=== PATIENT | female | born 1970 | race Caucasian/White ===

== ENCOUNTER 2017-05-22 13:57 | Outpatient (CLI) | payer BC ==
--- NOTE | 2017-05-22 15:23 | XRAY Report ---
TWO-VIEW CHEST: 05/22/2017 CLINICAL INDICATION: Productive cough, difficulty breathing. FINDINGS: Frontal and lateral views of the chest demonstrate a normal cardiac silhouette. The lungs are clear. No effusion or pneumothorax is present. IMPRESSION: NORMAL CHEST. JOB #: [id number] EXT JOB #:[id number]
== END 2017-05-22 13:58 | disposition home or self-care (01) ==
LOC: DI 13:57
PROVIDERS: ATTEND Naturopath
DX: R05 Cough (principal)
CPT/HCPCS: 71020

== ENCOUNTER 2017-11-22 17:08 | Outpatient (CLI) | payer OTHER ==
--- NOTE | 2017-11-26 11:58 | Ultrasound Report ---
ANKLE BRACHIAL INDICES: 11/22/2017 CLINICAL INDICATION: Raynaud syndrome. TECHNIQUE: Real-time sonographic vascular imaging was performed by the hydraulic press servicer through the extremities utilizing both color-flow and Doppler flow analysis. Multiple technical sales representatives static images were saved for review. RIGHT SIDE SITE [employer]IN[employer] SURGEON 32 biphasic -- PER -- -- -- DPA 25 biphasic -- LEFT SIDE SITE [employer] SURGEON 31 biphasic -- PER -- -- -- DPA 20 biphasic -- ABIGRAPH SYSTOLIC PRESSURES RIGHT LEFT BRACHIAL ARTERY 129/92 144/78 POSTERIOR TIBIAL ARTERY 160/117 139/118 ANTERIOR TIBIAL ARTERY -- -- PERONEAL ARTERY -- -- ANKLE/ARM INDEX 1.11 0.97 FINDINGS: The ABIs are normal, with the right measuring 1.11, on the left measuring 0.97. IMPRESSION: NORMAL ABIs. TD: 11/23/2017 09:04 MTDD
== END 2017-11-22 17:09 | disposition home or self-care (01) ==
LOC: DI 17:08
PROVIDERS: ATTEND Physician Assistant Medical
DX: I73.00 Raynaud's syndrome without gangrene (principal)
CPT/HCPCS: 93922

== ENCOUNTER 2019-01-29 08:00 | Outpatient (CLI) | payer BC, OTHER ==
[2019-01-29 12:32] LABS: BASOPHILS # (AUTO) 0.1 10^3/uL (0.0-0.1); BASOPHILS % (AUTO) 1.1 %; EOSINOPHILS # (AUTO) 0.3 10^3/uL (0.0-0.7); EOSINOPHILS % (AUTO) 5.2 %; HGB - HEMOGLOBIN 14.7 g/dL (12.0-16.0); LYMPHOCYTES # (AUTO) 1.3 10^3/uL (1.5-3.5); LYMPHOCYTES % (AUTO) 21.8 %; MEAN CORPUSCULAR HEMOGLOBIN 30.2 pg (27.0-31.0); MEAN CORPUSCULAR HGB CONC 33.9 g/dL (32.0-36.0); MEAN CORPUSCULAR VOLUME 89.1 fL (81.0-99.0); MEAN PLATELET VOLUME 12.2 fL (7.9-10.8); MONOCYTES # (AUTO) 0.6 10^3/uL (0.0-1.0); MONOCYTES % (AUTO) 10.5 %; NEUTROPHILS # (AUTO) 3.7 10^3/uL (1.5-6.6); NEUTROPHILS % (AUTO) 60.9 %; PLT - PLATELET COUNT 214 10^3/uL (130-450); RED BLOOD COUNT 4.87 10^6/uL (4.20-5.40); RED CELL DISTRIBUTION WIDTH 12.8 % (12.0-15.0); WHITE BLOOD COUNT 6.1 x10^3/uL (4.8-10.8)
[2019-01-29 13:29] LABS: ALBUMIN/GLOBULIN RATIO 1.5 (1.0-2.2); ALKALINE PHOSPHATASE 34 IU/L (42-121); ALT ALANINE AMINOTRANSFERASE 11 IU/L (10-60); AST ASPARTATE AMINOTRANSFERASE 14 IU/L (10-42); BILIRUBIN,TOTAL 1.4 mg/dL (0.2-1.0); BUN - BLOOD UREA NITROGEN 13 mg/dL (6-20); CALCIUM 9.2 mg/dL (8.5-10.3); CARBON DIOXIDE - CO2 22 mmol/L (21-32); CHLORIDE 113 mmol/L (101-111); CHOL/HDL RATIO 2.4 (<4.4); CHOLESTEROL 154 mg/dL; CREATININE 0.6 mg/dL (0.4-1.0); GFR - MDRD 107 (>89); GLUCOSE 96 mg/dL (70-100); HDL CHOLESTEROL 63 mg/dL; LDL CHOLESTEROL,CALCULATED 79 mg/dL; LDL/HDL RATIO 1.3 (<4.4); SODIUM 142 mmol/L (135-145); TOTAL PROTEIN 6.6 g/dL (6.7-8.2); VLDL CHOLESTEROL 12 mg/dL
== END 2019-01-29 23:59 | disposition home or self-care (01) ==
LOC: LAB.WCP 08:00
PROVIDERS: ATTEND Physician Assistant Medical
DX: J45.909 Unspecified asthma, uncomplicated (principal); G35 Multiple sclerosis; E80.6 Other disorders of bilirubin metabolism
CPT/HCPCS: 36415; 80053; 80061; 83721; 84443; 85025

== ENCOUNTER 2019-02-22 11:13 | Outpatient (CLI) | payer BC | END 2019-02-22 11:14 | disposition short-term general hospital (02) | LOC: EMS 11:13 | PROVIDERS: ATTEND Surgery | DX: R61 Generalized hyperhidrosis (principal); R06.02 Shortness of breath; R25.1 Tremor, unspecified | CPT/HCPCS: A0425; A0427 ==

== ENCOUNTER 2019-04-28 20:27 | Outpatient (CLI) | payer OTHER | END 2019-04-28 20:28 | disposition critical access hospital (66) | LOC: EMS 20:27 | PROVIDERS: ATTEND Surgery | DX: R06.4 Hyperventilation (principal); R25.2 Cramp and spasm ==

== ENCOUNTER 2019-04-28 20:44 | Observation (INO) | payer OTHER ==
[2019-04-28] MEDS ORDERED: LORazepam 2 MG/ML VIAL IVP STA ×3 (20:53→22:56)
--- NOTE | 2019-04-28 20:58 | ED Physician Documentation ---
History of Present Illness - Stated complaint Stated Complaint: MS - Chief complaint Chief Complaint: Neuro - History obtained from History obtained from: Patient, Family, EMS - History of Present Illness Timing: How many hours ago (1) Pain level max: 0 Pain level now: 0 - Additonal information Additional information: History is given via EMS. Apparently this started approximately 1 hour prior to arrival. Has a history of panic attacks. Family states that this is similar to her prior panic attacks. She also has MS. She did not take her Ativan today. Nothing makes it better or worse. She does not use oxygen at home. No changes in her medications. She is not , breast-feeding or trying to become . Review of Systems Unable to obtain: Other (unable to speak) PD PAST MEDICAL HISTORY - Past Medical History Past Medical History: Yes Neuro: Multiple sclerosis Psych: Anxiety - Present Medications Home Medications: Ambulatory Orders Medication Instructions Recorded Confirmed Albuterol Sulfate [Proair 1 puffs INH PRN PRN 04/28/19 04/28/19 Respiclick] - Allergies Allergies/Adverse Reactions: Allergies Allergy/AdvReac Type Severity Reaction Status Date / Time No Known Drug Allergies Allergy Verified 04/28/19 20:59 - Living Situation Living Situation: reports: With family Living Arrangement: reports: At home - Family History Family history: reports: Non contributory PD ED PE NORMAL - Vitals Vital signs reviewed: Yes - General General: Other (alert, tachypneic, carpal pedal spasms) - HEENT HEENT: Atraumatic, PERRL, EOMI, Moist mucous membranes - Neck Neck: Supple, no meningeal sign, No bony TTP - Cardiac Cardiac: RRR - Respiratory Respiratory: Clear bilaterally, Other (tachypneic) - Abdomen Abdomen: Soft, Non tender, Non distended - Derm Derm: Other (moist, cool) - Extremities Extremities: No edema - Neuro Neuro: Other (alert) Results - Vitals Vitals: Vital Signs - 24 hr 04/28/19 04/28/19 04/28/19 20:47 21:00 22:12 Temperature 36.2 C L Heart Rate 103 H 100 107 H Respiratory 34 H 28 H 13 Rate Blood Pressure 135/100 H 144/117 H O2 Saturation 100 99 100 04/28/19 04/28/19 04/29/19 23:29 23:45 01:00 Temperature 36.4 C L Heart Rate 98 93 Respiratory 15 22 Rate Blood Pressure 136/113 H O2 Saturation 99 96 04/29/19 03:00 Temperature Heart Rate 89 Respiratory 18 Rate Blood Pressure O2 Saturation 99 Oxygen O2 Source Room air - Labs Labs: Laboratory Tests 04/28/19 04/28/19 04/28/19 20:25 20:25 20:55 WBC 19.5 H RBC 5.32 Hgb 15.8 Hct 47.1 H MCV 88.5 MCH 29.7 MCHC 33.5 RDW 12.7 Plt Count 279 MPV 11.5 H Neut # (Auto) 13.7 H Lymph # (Auto) 3.7 H [place] # (Auto) 1.3 H Eos # (Auto) 0.6 Baso # (Auto) 0.2 H Absolute Nucleated RBC 0.00 Nucleated RBC % 0.0 Sodium Potassium Chloride Carbon Dioxide Anion Gap BUN Creatinine Estimated GFR (MDRD) Glucose Lactic Acid Calcium Total Bilirubin AST ALT Alkaline Phosphatase Total Protein Albumin Globulin Albumin/Globulin Ratio Lipase TSH 4.77 Urine Color Urine Clarity Urine pH Ur Specific [place] Urine Protein Urine Glucose (UA) Urine Ketones Urine Occult Blood Urine Nitrite Urine Bilirubin Urine Urobilinogen Ur Leukocyte Esterase Ur Microscopic Review Urine Culture Comments Urine HCG, Qual CSF Color CSF Clarity Xanthrochromic CSF WBC CSF RBC CSF Cell Count Tube # CSF Neutrophils CSF Lymphocytes CSF Monocytes CSF Glucose CSF Total Protein Salicylates < 6.0 Urine Opiates Screen Ur Oxycodone Screen Urine Methadone Screen Ur Propoxyphene Screen Acetaminophen < 10 L Ur Barbiturates Screen Ur Tricyclics Screen Ur Phencyclidine Scrn Ur Amphetamine Screen U Methamphetamines Scrn U Benzodiazepines Scrn Urine Cocaine Screen U Cannabinoids Screen Ethyl Alcohol < 5.0 04/28/19 04/28/19 04/28/19 20:55 21:55 22:00 WBC RBC Hgb Hct MCV MCH MCHC RDW Plt Count MPV Neut # (Auto) Lymph # (Auto) [place] # (Auto) Eos # (Auto) Baso # (Auto) Absolute Nucleated RBC Nucleated RBC % Sodium 143 Potassium 3.8 Chloride 103 Carbon Dioxide 19 L Anion Gap 21.0 H BUN 14 Creatinine 0.8 Estimated GFR (MDRD) 77 L Glucose 147 H Lactic Acid 8.1 H* Calcium 10.0 Total Bilirubin 1.3 H AST 19 ALT 15 Alkaline Phosphatase 49 Total Protein 8.2 Albumin 5.1 Globulin 3.1 Albumin/Globulin Ratio 1.6 Lipase 43 TSH Urine Color LT. YELLOW Urine Clarity CLEAR Urine pH 5.5 Ur Specific [place] >=1.030 H Urine Protein NEGATIVE Urine Glucose (UA) NEGATIVE Urine Ketones 15 H Urine Occult Blood NEGATIVE Urine Nitrite NEGATIVE Urine Bilirubin NEGATIVE Urine Urobilinogen 0.2 (NORMAL) Ur Leukocyte Esterase NEGATIVE Ur Microscopic Review NOT INDICATED Urine Culture Comments NOT INDICATED Urine HCG, Qual NEGATIVE CSF Color CSF Clarity Xanthrochromic CSF WBC CSF RBC CSF Cell Count Tube # CSF Neutrophils CSF Lymphocytes CSF Monocytes CSF Glucose CSF Total Protein Salicylates Urine Opiates Screen NEGATIVE Ur Oxycodone Screen NEGATIVE Urine Methadone Screen NEGATIVE Ur Propoxyphene Screen NEGATIVE Acetaminophen Ur Barbiturates Screen NEGATIVE Ur Tricyclics Screen NEGATIVE Ur Phencyclidine Scrn NEGATIVE Ur Amphetamine Screen NEGATIVE U Methamphetamines Scrn NEGATIVE U Benzodiazepines Scrn POSITIVE H Urine Cocaine Screen NEGATIVE U Cannabinoids Screen POSITIVE H Ethyl Alcohol 04/29/19 01:30 WBC RBC Hgb Hct MCV MCH MCHC RDW Plt Count MPV Neut # (Auto) Lymph # (Auto) [place] # (Auto) Eos # (Auto) Baso # (Auto) Absolute Nucleated RBC Nucleated RBC % Sodium Potassium Chloride Carbon Dioxide Anion Gap BUN Creatinine Estimated GFR (MDRD) Glucose Lactic Acid Calcium Total Bilirubin AST ALT Alkaline Phosphatase Total Protein Albumin Globulin Albumin/Globulin Ratio Lipase TSH Urine Color Urine Clarity Urine pH Ur Specific [place] Urine Protein Urine Glucose (UA) Urine Ketones Urine Occult Blood Urine Nitrite Urine Bilirubin Urine Urobilinogen Ur Leukocyte Esterase Ur Microscopic Review Urine Culture Comments Urine HCG, Qual CSF Color PINK CSF Clarity CLOUDY Xanthrochromic ABSENT CSF WBC 16 H CSF RBC 5250 H CSF Cell Count Tube # CSF TUBE# 3 CSF Neutrophils 90 H CSF Lymphocytes 7 L CSF Monocytes 3 L CSF Glucose 65 CSF Total Protein 34 Salicylates Urine Opiates Screen Ur Oxycodone Screen Urine Methadone Screen Ur Propoxyphene Screen Acetaminophen Ur Barbiturates Screen Ur Tricyclics Screen Ur Phencyclidine Scrn Ur Amphetamine Screen U Methamphetamines Scrn U Benzodiazepines Scrn Urine Cocaine Screen U Cannabinoids Screen Ethyl Alcohol - Rads (name of study) Head CT Radiology: Prelim report reviewed, EMP read contemporaneously, See rad report (No CT evidence of an acute intracranial abnormality. If there is clinical suspicion of an acute infarct, consider MRI since it is more sensitive than CT. 2. Moderate patchy white matter low density within the periventricular white matter, nonspecific and could be secondary to history of multiple sclerosis and/or chronic microvascular ischemic change. ) Chest x-ray Radiology: Prelim report reviewed, EMP read contemporaneously, See rad report ( No acute cardiopulmonary disease seen. ) Procedures - Lumbar Puncture Position: Laying left side Location: L3-L4, L4-L5, Midline approach Anesthesia: Local lidocaine, Conscious sedation (versed 2mg) CSF: Bloody but clearing Other: Sterile prep and drape, Patient tolerated well, No complications PD MEDICAL DECISION MAKING - ED course Complexity details: reviewed results, re-evaluated patient, considered differential, d/w patient, d/w family, d/w environmental consultant ED course: 49-year-old female initially presented to the emergency department what appeared to be a panic attack. She is well-appearing, nontoxic. Afebrile. She improved with Ativan. However she then had a tonic-clonic seizure, lasting for approximately 2 to 3 minutes. She remained altered after this. She was given 1 g of Keppra IV. I contacted neurology, Dr. Ferraro at [facility] who recommends another gram of Keppra IV for a total of 2 g. Recommends performing a LP as well. Patient was difficult to perform the initial LP because she awoke part way through and became quite erratic on the table. Therefore 2 mg of Versed were pushed and it was attempted again. This time the initial tube was bloody, but the blood was clearing as the other tubes were collected. Neurology recommend a brain MRI with and without contrast in the morning. They do not feel that she needs to be transferred for this. Patient is continued to be altered in the emergency department, Though this is likely related to medications. Neurology also recommends starting Keppra 750 mg p.o. twice daily at home. Discussed with hospitalist, Dr. Sullivan who states he is not comfortable with the patient in this hospital. I recontacted Dr. Ferraro and she does not see a reason for transfer. I then recontacted Dr. Sullivan so that he and Dr. Ferraro can discuss this directly. After further discussion, we will keep the patient at [facility] and obtain an MRI in the morning. We will also observe to ensure that her mental status clears as expected after the Ativan and Versed wear off. Dr. Nchotu accepts Of note the lactic acid was drawn immediately following the seizure. Therefore the lactate measurement is likely not very accurate. The CSF is not consistent with meningitis. Departure - Departure Disposition: ED Place in Observation Clinical Impression: Seizure Altered mental status Qualifiers: Altered mental status type: unspecified Qualified Code(s): R41.82 - Altered mental status, unspecified Condition: Stable
[2019-04-28 21:03] LABS: BASOPHILS # (AUTO) 0.2 10^3/uL (0.0-0.1); BASOPHILS % (AUTO) 0.9 %; EOSINOPHILS # (AUTO) 0.6 10^3/uL (0.0-0.7); EOSINOPHILS % (AUTO) 2.8 %; HGB - HEMOGLOBIN 15.8 g/dL (12.0-16.0); LYMPHOCYTES # (AUTO) 3.7 10^3/uL (1.5-3.5); LYMPHOCYTES % (AUTO) 18.9 %; MEAN CORPUSCULAR HEMOGLOBIN 29.7 pg (27.0-31.0); MEAN CORPUSCULAR HGB CONC 33.5 g/dL (32.0-36.0); MEAN CORPUSCULAR VOLUME 88.5 fL (81.0-99.0); MEAN PLATELET VOLUME 11.5 fL (7.9-10.8); MONOCYTES # (AUTO) 1.3 10^3/uL (0.0-1.0); MONOCYTES % (AUTO) 6.4 %; NEUTROPHILS # (AUTO) 13.7 10^3/uL (1.5-6.6); NEUTROPHILS % (AUTO) 70.2 %; PLT - PLATELET COUNT 279 10^3/uL (130-450); RED BLOOD COUNT 5.32 10^6/uL (4.20-5.40); RED CELL DISTRIBUTION WIDTH 12.7 % (12.0-15.0); WHITE BLOOD COUNT 19.5 x10^3/uL (4.8-10.8)
[2019-04-28] MEDS ORDERED: SODIUM CHLORIDE 0.9% 1,000 ML IV ONE ×4 (21:11→21:51)
[2019-04-28 21:15] LABS: ALBUMIN 5.1 g/dL (3.2-5.5); ALBUMIN/GLOBULIN RATIO 1.6 (1.0-2.2); BILIRUBIN,TOTAL 1.3 mg/dL (0.2-1.0); CREATININE 0.8 mg/dL (0.4-1.0); TOTAL PROTEIN 8.2 g/dL (6.7-8.2)
[2019-04-28 21:32] LABS: ACETAMINOPHEN < 10 ug/mL (10-30); SALICYLATE < 6.0 mg/dL
[2019-04-28] MEDS ORDERED: levETIRAcetam INJ 1,000 MG in SODIUM CHLORIDE 0.9% 100ML 100 ML IV STA (21:49)
[2019-04-28] MEDS ORDERED: VANCOMYCIN INJ 1 GM in SODIUM CHLORIDE 0.9% 500 ML IV STA (21:50)
[2019-04-28] MEDS ORDERED: PIPERACILLIN/TAZOBACTAM 4.5 GM in SODIUM CHLORIDE 0.9% MINIBAG 100 ML IV STA (21:50)
--- NOTE | 2019-04-28 21:57 | XRAY Report ---
Reason: dyspnea Procedure Date: 04/28/2019 Accession Number: [id number] / [id number] Procedure: XR - Chest 1 View X-Ray CPT Code: 64049 Final Report FULL RESULT: EXAM: CHEST RADIOGRAPHY EXAM DATE: 04/28/2019 09:42 PM. CLINICAL HISTORY: Dyspnea. COMPARISON: CHEST 2 VIEW PA/LAT 05/22/2017 2:04 PM. TECHNIQUE: 1 view. FINDINGS: Lungs/Pleura: No focal opacities evident. No pleural effusion. No pneumothorax. Mediastinum: Within exam limitations, the cardiomediastinal contour is normal. IMPRESSION: No acute cardiopulmonary disease seen. RADIA
[2019-04-28 22:10] LABS: MUDS CUTOFF CONCENTRATIONS CUTOFF CONC BELOW:
[2019-04-28 22:12] LABS: BILIRUBIN,URINE NEGATIVE (NEGATIVE); GLUCOSE, URINE (UA) NEGATIVE (NEGATIVE); KETONES,URINE (UA) 15 mg/dL (NEGATIVE); LEUKOCYTE ESTERASE, URINE NEGATIVE (NEGATIVE); NITRITE,URINE NEGATIVE (NEGATIVE); OCCULT BLOOD,URINE NEGATIVE (NEGATIVE); PH,URINE 5.5 PH (5.0-7.5); PROTEIN,URINE NEGATIVE (NEGATIVE); UROBILINOGEN,URINE 0.2 (NORMAL) E.U./dL (NORMAL)
[2019-04-28 22:16] LABS: CLARITY,URINE CLEAR (CLEAR); HCG UR QUAL NEGATIVE
[2019-04-28 22:32] LABS: AMPHETAMINE SCREEN,URINE NEGATIVE (NEGATIVE); BENZODIAZEPINES SCREEN, URINE POSITIVE (NEGATIVE); COCAINE SCREEN URINE NEGATIVE (NEGATIVE); METHADONE SCREEN, URINE NEGATIVE (NEGATIVE); METHAMPHETAMINES SCREEN, URINE NEGATIVE (NEGATIVE); OPIATE SCREEN, URINE NEGATIVE (NEGATIVE); OXYCODONE SCREEN, URINE NEGATIVE (NEGATIVE); PROPOXYPHENE SCREEN, URINE NEGATIVE (NEGATIVE); TRICYCLIC ANTIDEPRESSANT,URINE NEGATIVE (NEGATIVE)
--- NOTE | 2019-04-28 23:43 | CT Report ---
Reason: aloc Procedure Date: 04/28/2019 Accession Number: [id number] / [id number] Procedure: CT - HEAD WO CPT Code: Final Report FULL RESULT: EXAM: CT HEAD EXAM DATE: 04/28/2019 11:21 PM. CLINICAL HISTORY: Altered level of consciousness, seizures, history of multiple sclerosis. Nonverbal. COMPARISON: None. TECHNIQUE: Multiaxial CT images were obtained from the foramen magnum to the vertex. Reformats: Sagittal and coronal. IV contrast: None. In accordance with CT protocol optimization, one or more of the following dose reduction techniques were utilized for this exam: automated exposure control, adjustment of mA and/or KV based on patient size, or use of iterative reconstructive technique. FINDINGS: Parenchyma: Moderate patchy white matter periventricular low density is noted, particularly within the parietal occipital lobes bilaterally. No acute intracranial hemorrhage or large cortical infarct. No intra-axial mass within the confines of a non-contrast exam. No midline shift. Extraaxial Spaces: No abnormal extra-axial collections demonstrated. Ventricles and sulci: Ventricles and sulci are proportional. Sinuses: Visualized paranasal sinuses are without air-fluid level. No evident mastoid fluid. Orbits: Without significant abnormality. Bones: No evidence of fracture or calvarial defect. Other: None. IMPRESSION: 1. No CT evidence of an acute intracranial abnormality. If there is clinical suspicion of an acute infarct, consider MRI since it is more sensitive than CT. 2. Moderate patchy white matter low density within the periventricular white matter, nonspecific and could be secondary to history of multiple sclerosis and/or chronic microvascular ischemic change. RADIA
[2019-04-29] MEDS ORDERED: levETIRAcetam INJ 1,000 MG in SODIUM CHLORIDE 0.9% 100ML 100 ML IV STA (00:35)
[2019-04-29] MEDS ORDERED: MIDAZOLAM 2 MG/2 ML VIAL IVP STA (00:56)
[2019-04-29 02:03] LABS: CSF TUBE # CSF TUBE# 3
[2019-04-29 02:04] LABS: CLARITY,CSF CLOUDY (CLEAR); COLOR,CSF PINK (COLORLESS); CSF XANTHOCHROMIA ABSENT (ABSENT)
[2019-04-29 02:08] LABS: RED BLOOD CELL,CSF 5250 /mm^3 (0-1); WHITE BLOOD CELL,CSF 16 /mm^3 (0-5)
[2019-04-29 02:20] LABS: CSF - GLUCOSE 65 mg/dL (45-70)
[2019-04-29 03:00] LABS: LYMPHOCYTES,CSF 7 % (40-80); MONOCYTES,CSF 3 % (15-45); NEUTROPHILS,CSF 90 % (0-6)
[2019-04-29] MEDS ORDERED: SODIUM CHLORIDE FLUSH 0.9% 10 ML SYRINGE IVP PRN (03:23)
[2019-04-29] MEDS ORDERED: SODIUM CHLORIDE 0.9% 500 ML IV ONE (03:39)
--- NOTE | 2019-04-29 03:40 | HISTORY & PHYSICAL EXAMINATION ---
Chief Complaint - Chief Complaint Chief Complaint: AMS, tonic-clonic seizure History of Present Illness - Admitted From Admitted From:: [facility] ED - History Obtained From Records Reviewed: yes History obtained from: patient's Exam Limitations: currently sedated - History of Present Illness HPI Comment/Other: Patient seen on 04/29/19 around 03:00 am Patient is a 49 y/o female with history of MS, wheelchair bound and on ampyra who presented to the ED with complain of what initially seemed like a panic attack. This happened around 7pm after they had just eaten dinner. At the time she was complaining of stomach, leg and back pain. She also complained of feeling hot and cold. In the ED she had a witnessed tonic-clonic seizure. It is reported that she had one incident of seizure in January of 2019 which was associated with a UTI. Subsequent labs done in the ED showed a WBC of 19.5 and a lactic acid of 8.1. She was afebrile. She had an LP done in the ED which was a traumatic tap but unremarkable for an infectious process. She was given 2mg of versed and 2mg of ativan IV in the ED. As a result she was very sedated during my exam. She follows with Neurology at [facility]. Neurology was contacted and the advised observation, Keppra bid and an MRI of the brain. If any significant findings, then to contact them. She had an MRI of the brain done at [facility] in January which was stable. History - Past Medical History Neuro: reports: Multiple sclerosis Psych: reports: Anxiety MRSA Hx?: No - Past Surgical History Other past surgical history: Stem cells for MS a few years ago - Family & Social History Family History: Mother: Asthma Living arrangement: At home Living Situation: With family Social History Notes: She lives at home with her . She is wheelchair bound by able to groom and feed herself. She usually requires some help in and out of her chair. She smokes cannabis. She does to use tobacco products or d rink alcohol Meds/Allgy - Home Medications Home Medications: Ambulatory Orders Medication Instructions Recorded Confirmed Albuterol Sulfate [Proair 1 puffs INH PRN PRN 04/28/19 04/28/19 Respiclick] - Allergies Allergies/Adverse Reactions: Allergies Allergy/AdvReac Type Severity Reaction Status Date / Time No Known Drug Allergies Allergy Verified 04/28/19 20:59 Review of Systems - Other Findings Other Findings: ROS is currently limited because the patient is currently very sedated and unable to provide Prior Level of Functionality: She lives at home with her . She is wheelchair bound by able to groom and feed herself. She usually requires some help in and out of her chair. Exam - Vital Signs Vital Signs: Vital Signs x48h Temp Pulse Resp BP Pulse Ox 04/29/19 03:00 89 18 99 04/29/19 01:00 93 22 96 04/28/19 23:45 36.4 C L 04/28/19 23:29 98 15 136/113 H 99 04/28/19 22:12 107 H 13 144/117 H 100 04/28/19 21:00 100 28 H 99 04/28/19 20:47 36.2 C L 103 H 34 H 135/100 H 100 - Physical Exam General Appearance: positive: No acute distress, Lethargic. negative: Alert Eyes Bilateral: positive: Normal inspection, PERRL, EOMI ENT: positive: ENT inspection nml Neck: positive: Nml inspection, No JVD, Trachea midline Respiratory: positive: Chest non-tender, No respiratory distress, Breath sounds nml. negative: Wheezes, Rales, Rhonchi Cardiovascular: positive: Regular rate & rhythm, No murmur, No gallop Abdomen: positive: Non-tender, No organomegaly, Nml bowel sounds, No distention. negative: Guarding, Rebound Back: positive: Nml inspection Skin: positive: Color nml, No rash, Warm Extremities: positive: Non-tender Neurologic/Psychiatric: negative: Oriented x3 Conclusion/Plan - Problem List (1) Altered mental status Conclusion/Plan: etiology undetermined CT of brain unremarkable for any acute process MRI of brain pending Qualifiers: Altered mental status type: unspecified Qualified Code(s): R41.82 - Altered mental status, unspecified (2) Seizure Conclusion/Plan: Etiology undetermined Patient given a loading dose of Keppra 2g IV At the recommendation of neurology, will continue Keppra 750mg IV bid and switch to po when patient able to tolerate On seizure precautions Patient will need to follow up with neurology upon discharge (3) Multiple sclerosis Conclusion/Plan: Will continue the patient's ampyra MRI brain ordered (4) Lactic acidosis Conclusion/Plan: Likely 2/2 seizure. Hydrating patient. Will recheck. (5) Leukocytosis Conclusion/Plan: Likely reactive. Will monitor However patient was given a dose of empiric antibiotics Will not continue at the moment - Lab Results Fish Bones: 04/28/19 20:55 04/28/19 20:55 Core Measures - Anticipated LOS I expect patient to be DC'd or transferred within 96 hours.: Yes - DVT/VTE - Prophylaxis VTE/DVT Device ordered at admit?: Yes
[2019-04-29] MEDS: SODIUM CHLORIDE 0.9% 1,000 ML IV SCH ×2 (04:45→15:03)
[2019-04-29 05:44] LABS: BASOPHILS # (AUTO) 0.1 10^3/uL (0.0-0.1); BASOPHILS % (AUTO) 0.3 %; EOSINOPHILS # (AUTO) 0.1 10^3/uL (0.0-0.7); EOSINOPHILS % (AUTO) 0.3 %; HGB - HEMOGLOBIN 12.5 g/dL (12.0-16.0); LYMPHOCYTES # (AUTO) 0.8 10^3/uL (1.5-3.5); LYMPHOCYTES % (AUTO) 5.7 %; MEAN CORPUSCULAR HGB CONC 33.1 g/dL (32.0-36.0); MEAN CORPUSCULAR VOLUME 90.6 fL (81.0-99.0); MEAN PLATELET VOLUME 11.6 fL (7.9-10.8); MONOCYTES # (AUTO) 0.8 10^3/uL (0.0-1.0); MONOCYTES % (AUTO) 5.6 %; NEUTROPHILS # (AUTO) 12.7 10^3/uL (1.5-6.6); NEUTROPHILS % (AUTO) 87.5 %; PLT - PLATELET COUNT 181 10^3/uL (130-450); RED BLOOD COUNT 4.17 10^6/uL (4.20-5.40); RED CELL DISTRIBUTION WIDTH 12.7 % (12.0-15.0); WHITE BLOOD COUNT 14.5 x10^3/uL (4.8-10.8)
[2019-04-29 05:51] LABS: CALCIUM 7.8 mg/dL (8.5-10.3); CREATININE 0.6 mg/dL (0.4-1.0)
[2019-04-29] MEDS ORDERED: levETIRAcetam INJ 750 MG in SODIUM CHLORIDE 0.9% 100ML 100 ML IV SCH (09:00)
[2019-04-29] MEDS: SODIUM CHLORIDE FLUSH 0.9% 10 ML SYRINGE IVP SCH ×2 (10:55→17:44)
[2019-04-29] MEDS: IBUPROFEN 600 MG TABLET PO SCH ×2 (10:58→17:43)
[2019-04-29] MEDS: AMPYRA 10 MG PO SCH (13:55)
--- NOTE | 2019-04-29 15:02 | PROVIDER PROGRESS NOTE ---
Subjective - Prog Note Date Prog Note Date: 04/29/19 Prog Note Time: 14:59 - Subjective Pt reports feeling: Improved Subjective: she was very sedated this am after benzo for seizure. now awake, hungry. I've had a conversation with her neurologist, Dr.Francesco Martin from [facility] @ [phone] Current Medications - Current Medications Current Medications: Active Medications Guaifenesin (Mucinex) 600 mg PO BID NORBERT Sodium Chloride (Normal Saline 0.9%) 1,000 mls @ 100 mls/hr IV .Q10H NORBERT Last Admin: 04/29/19 04:45 Dose: 100 mls/hr Ibuprofen (Motrin) 600 mg PO Q6HR NORBERT Last Admin: 04/29/19 10:58 Dose: 600 mg Levetiracetam (Keppra) 750 mg PO BID NORBERT Ampyra 10mg Tab 1 each PO BID [facility] Last Admin: 04/29/19 13:55 Dose: Not Given Sodium Chloride (Normal Saline Flush 0.9%) 10 ml IVP PRN PRN PRN Reason: NEEDED PER PROVIDER ORDERS Sodium Chloride (Normal Saline Flush 0.9%) 10 ml IVP 0100,0900,1700 [facility] Last Admin: 04/29/19 10:55 Dose: Not Given Albuterol Sulfate [Proair Respiclick] 1 puffs INH PRN PRN 04/28/19 Aminopyridine 5 mg PO QID 04/29/19 Montelukast Sodium 10 mg PO DAILY 04/29/19 Objective - Vital Signs/Intake & Output Reviewed Vital Signs: Yes Vital Signs: Vital Signs x48h Temp Pulse Resp BP BP Pulse Ox 04/29/19 14:22 36.5 C 96 16 107/48 L 96 04/29/19 08:00 37.1 C 79 15 112/48 L 98 Intake & Output: Intake & Output 04/27/19 04/28/19 04/28/19 04/29/19 00:59 00:59 23:59 23:59 Intake Total 4217.5 Balance 4217.5 - Objective General Appearance: positive: No acute distress, Alert, Other (daughter and at the bedside) Eyes Bilateral: positive: PERRL ENT: positive: Pharynx nml Neck: positive: No JVD. negative: Stiff neck, Carotid bruit Respiratory: positive: Chest non-tender, Other (shallow, slow respiration). negative: Wheezes, Rales, Rhonchi Cardiovascular: positive: Regular rate & rhythm. negative: Systolic murmur, Gallop/S4 Abdomen: positive: Non-tender, No organomegaly, Nml bowel sounds, No distention Skin: positive: Warm, Dry Neurologic/Psychiatric: positive: Oriented x3, Slurred/abnml speech, Other (legs barely move, she can usually stand to transfer using her arms and can't right now.) - Lab Results Fish Bones: 04/29/19 05:33 04/29/19 05:33 Other Labs: Lab Results x24hrs 04/29/19 04/29/19 04/29/19 Range/Units 05:33 05:33 05:33 WBC 14.5 H (4.8-10.8) x10^3/uL RBC 4.17 L (4.20-5.40) 10^6/uL Hgb 12.5 (12.0-16.0) g/dL Hct 37.8 (37.0-47.0) % MCV 90.6 (81.0-99.0) fL MCH 30.0 (27.0-31.0) pg MCHC 33.1 (32.0-36.0) g/dL RDW 12.7 (12.0-15.0) % Plt Count 181 (130-450) 10^3/uL MPV 11.6 H (7.9-10.8) fL Neut # (Auto) 12.7 H (1.5-6.6) 10^3/uL Lymph # (Auto) 0.8 L (1.5-3.5) 10^3/uL Ector # (Auto) 0.8 (0.0-1.0) 10^3/uL Eos # (Auto) 0.1 (0.0-0.7) 10^3/uL Baso # (Auto) 0.1 (0.0-0.1) 10^3/uL Absolute Nucleated RBC 0.00 x10^3/uL Nucleated RBC % 0.0 /100WBC Sodium 144 (135-145) mmol/L Potassium 4.1 (3.5-5.0) mmol/L Chloride 117 H (101-111) mmol/L Carbon Dioxide 22 (21-32) mmol/L Anion Gap 5.0 L (6-13) BUN 12 (6-20) mg/dL Creatinine 0.6 (0.4-1.0) mg/dL Estimated GFR (MDRD) 107 (>89) Glucose 88 (70-100) mg/dL Lactic Acid 1.3 (0.5-2.2) mmol/L Calcium 7.8 L (8.5-10.3) mg/dL Total Bilirubin (0.2-1.0) mg/dL AST (10-42) IU/L ALT (10-60) IU/L Alkaline Phosphatase (42-121) IU/L Total Protein (6.7-8.2) g/dL Albumin (3.2-5.5) g/dL Globulin (2.1-4.2) g/dL Albumin/Globulin Ratio (1.0-2.2) Lipase (22-51) U/L TSH (0.34-5.60) uIU/mL Urine Color Urine Clarity (CLEAR) Urine pH (5.0-7.5) PH Ur Specific Bryson (1.002-1.030) Urine Protein (NEGATIVE) mg/dL Urine Glucose (UA) (NEGATIVE) mg/dL Urine Ketones (NEGATIVE) mg/dL Urine Occult Blood (NEGATIVE) Urine Nitrite (NEGATIVE) Urine Bilirubin (NEGATIVE) Urine Urobilinogen (NORMAL) E.U./dL Ur Leukocyte Esterase (NEGATIVE) Ur Microscopic Review Urine Culture Comments Urine HCG, Qual CSF Color (COLORLESS) CSF Clarity (CLEAR) Xanthrochromic (ABSENT) CSF WBC (0-5) /mm^3 CSF RBC (0-1) /mm^3 CSF Cell Count Tube # CSF Neutrophils (0-6) % CSF Lymphocytes (40-80) % CSF Monocytes (15-45) % CSF Glucose (45-70) mg/dL CSF Total Protein (15-45) mg/dL Salicylates mg/dL Urine Opiates Screen (NEGATIVE) Ur Oxycodone Screen (NEGATIVE) Urine Methadone Screen (NEGATIVE) Ur Propoxyphene Screen (NEGATIVE) Acetaminophen (10-30) ug/mL Ur Barbiturates Screen (NEGATIVE) Ur Tricyclics Screen (NEGATIVE) Ur Phencyclidine Scrn (NEGATIVE) Ur Amphetamine Screen (NEGATIVE) U Methamphetamines Scrn (NEGATIVE) U Benzodiazepines Scrn (NEGATIVE) Urine Cocaine Screen (NEGATIVE) U Cannabinoids Screen (NEGATIVE) Ethyl Alcohol mg/dL 04/29/19 04/28/19 04/28/19 Range/Units 01:30 22:00 21:55 WBC (4.8-10.8) x10^3/uL RBC (4.20-5.40) 10^6/uL Hgb (12.0-16.0) g/dL Hct (37.0-47.0) % MCV (81.0-99.0) fL MCH (27.0-31.0) pg MCHC (32.0-36.0) g/dL RDW (12.0-15.0) % Plt Count (130-450) 10^3/uL MPV (7.9-10.8) fL Neut # (Auto) (1.5-6.6) 10^3/uL Lymph # (Auto) (1.5-3.5) 10^3/uL Ector # (Auto) (0.0-1.0) 10^3/uL Eos # (Auto) (0.0-0.7) 10^3/uL Baso # (Auto) (0.0-0.1) 10^3/uL Absolute Nucleated RBC x10^3/uL Nucleated RBC % /100WBC Sodium (135-145) mmol/L Potassium (3.5-5.0) mmol/L Chloride (101-111) mmol/L Carbon Dioxide (21-32) mmol/L Anion Gap (6-13) BUN (6-20) mg/dL Creatinine (0.4-1.0) mg/dL Estimated GFR (MDRD) (>89) Glucose (70-100) mg/dL Lactic Acid 8.1 H* (0.5-2.2) mmol/L Calcium (8.5-10.3) mg/dL Total Bilirubin (0.2-1.0) mg/dL AST (10-42) IU/L ALT (10-60) IU/L Alkaline Phosphatase (42-121) IU/L Total Protein (6.7-8.2) g/dL Albumin (3.2-5.5) g/dL Globulin (2.1-4.2) g/dL Albumin/Globulin Ratio (1.0-2.2) Lipase (22-51) U/L TSH (0.34-5.60) uIU/mL Urine Color LT. YELLOW Urine Clarity CLEAR (CLEAR) Urine pH 5.5 (5.0-7.5) PH Ur Specific Bryson >=1.030 H (1.002-1.030) Urine Protein NEGATIVE (NEGATIVE) mg/dL Urine Glucose (UA) NEGATIVE (NEGATIVE) mg/dL Urine Ketones 15 H (NEGATIVE) mg/dL Urine Occult Blood NEGATIVE (NEGATIVE) Urine Nitrite NEGATIVE (NEGATIVE) Urine Bilirubin NEGATIVE (NEGATIVE) Urine Urobilinogen 0.2 (NORMAL) (NORMAL) E.U./dL Ur Leukocyte Esterase NEGATIVE (NEGATIVE) Ur Microscopic Review NOT INDICATED Urine Culture Comments NOT INDICATED Urine HCG, Qual NEGATIVE CSF Color PINK (COLORLESS) CSF Clarity CLOUDY (CLEAR) Xanthrochromic ABSENT (ABSENT) CSF WBC 16 H (0-5) /mm^3 CSF RBC 5250 H (0-1) /mm^3 CSF Cell Count Tube # CSF TUBE# 3 CSF Neutrophils 90 H (0-6) % CSF Lymphocytes 7 L (40-80) % CSF Monocytes 3 L (15-45) % CSF Glucose 65 (45-70) mg/dL CSF Total Protein 34 (15-45) mg/dL Salicylates mg/dL Urine Opiates Screen NEGATIVE (NEGATIVE) Ur Oxycodone Screen NEGATIVE (NEGATIVE) Urine Methadone Screen NEGATIVE (NEGATIVE) Ur Propoxyphene Screen NEGATIVE (NEGATIVE) Acetaminophen (10-30) ug/mL Ur Barbiturates Screen NEGATIVE (NEGATIVE) Ur Tricyclics Screen NEGATIVE (NEGATIVE) Ur Phencyclidine Scrn NEGATIVE (NEGATIVE) Ur Amphetamine Screen NEGATIVE (NEGATIVE) U Methamphetamines Scrn NEGATIVE (NEGATIVE) U Benzodiazepines Scrn POSITIVE H (NEGATIVE) Urine Cocaine Screen NEGATIVE (NEGATIVE) U Cannabinoids Screen POSITIVE H (NEGATIVE) Ethyl Alcohol mg/dL 04/28/19 04/28/19 04/28/19 Range/Units 20:55 20:55 20:25 WBC 19.5 H (4.8-10.8) x10^3/uL RBC 5.32 (4.20-5.40) 10^6/uL Hgb 15.8 (12.0-16.0) g/dL Hct 47.1 H (37.0-47.0) % MCV 88.5 (81.0-99.0) fL MCH 29.7 (27.0-31.0) pg MCHC 33.5 (32.0-36.0) g/dL RDW 12.7 (12.0-15.0) % Plt Count 279 (130-450) 10^3/uL MPV 11.5 H (7.9-10.8) fL Neut # (Auto) 13.7 H (1.5-6.6) 10^3/uL Lymph # (Auto) 3.7 H (1.5-3.5) 10^3/uL Ector # (Auto) 1.3 H (0.0-1.0) 10^3/uL Eos # (Auto) 0.6 (0.0-0.7) 10^3/uL Baso # (Auto) 0.2 H (0.0-0.1) 10^3/uL Absolute Nucleated RBC 0.00 x10^3/uL Nucleated RBC % 0.0 /100WBC Sodium 143 (135-145) mmol/L Potassium 3.8 (3.5-5.0) mmol/L Chloride 103 (101-111) mmol/L Carbon Dioxide 19 L (21-32) mmol/L Anion Gap 21.0 H (6-13) BUN 14 (6-20) mg/dL Creatinine 0.8 (0.4-1.0) mg/dL Estimated GFR (MDRD) 77 L (>89) Glucose 147 H (70-100) mg/dL Lactic Acid (0.5-2.2) mmol/L Calcium 10.0 (8.5-10.3) mg/dL Total Bilirubin 1.3 H (0.2-1.0) mg/dL AST 19 (10-42) IU/L ALT 15 (10-60) IU/L Alkaline Phosphatase 49 (42-121) IU/L Total Protein 8.2 (6.7-8.2) g/dL Albumin 5.1 (3.2-5.5) g/dL Globulin 3.1 (2.1-4.2) g/dL Albumin/Globulin Ratio 1.6 (1.0-2.2) Lipase 43 (22-51) U/L TSH (0.34-5.60) uIU/mL Urine Color Urine Clarity (CLEAR) Urine pH (5.0-7.5) PH Ur Specific Bryson (1.002-1.030) Urine Protein (NEGATIVE) mg/dL Urine Glucose (UA) (NEGATIVE) mg/dL Urine Ketones (NEGATIVE) mg/dL Urine Occult Blood (NEGATIVE) Urine Nitrite (NEGATIVE) Urine Bilirubin (NEGATIVE) Urine Urobilinogen (NORMAL) E.U./dL Ur Leukocyte Esterase (NEGATIVE) Ur Microscopic Review Urine Culture Comments Urine HCG, Qual CSF Color (COLORLESS) CSF Clarity (CLEAR) Xanthrochromic (ABSENT) CSF WBC (0-5) /mm^3 CSF RBC (0-1) /mm^3 CSF Cell Count Tube # CSF Neutrophils (0-6) % CSF Lymphocytes (40-80) % CSF Monocytes (15-45) % CSF Glucose (45-70) mg/dL CSF Total Protein (15-45) mg/dL Salicylates < 6.0 mg/dL Urine Opiates Screen (NEGATIVE) Ur Oxycodone Screen (NEGATIVE) Urine Methadone Screen (NEGATIVE) Ur Propoxyphene Screen (NEGATIVE) Acetaminophen < 10 L (10-30) ug/mL Ur Barbiturates Screen (NEGATIVE) Ur Tricyclics Screen (NEGATIVE) Ur Phencyclidine Scrn (NEGATIVE) Ur Amphetamine Screen (NEGATIVE) U Methamphetamines Scrn (NEGATIVE) U Benzodiazepines Scrn (NEGATIVE) Urine Cocaine Screen (NEGATIVE) U Cannabinoids Screen (NEGATIVE) Ethyl Alcohol < 5.0 mg/dL 04/28/19 Range/Units 20:25 WBC (4.8-10.8) x10^3/uL RBC (4.20-5.40) 10^6/uL Hgb (12.0-16.0) g/dL Hct (37.0-47.0) % MCV (81.0-99.0) fL MCH (27.0-31.0) pg MCHC (32.0-36.0) g/dL RDW (12.0-15.0) % Plt Count (130-450) 10^3/uL MPV (7.9-10.8) fL Neut # (Auto) (1.5-6.6) 10^3/uL Lymph # (Auto) (1.5-3.5) 10^3/uL Ector # (Auto) (0.0-1.0) 10^3/uL Eos # (Auto) (0.0-0.7) 10^3/uL Baso # (Auto) (0.0-0.1) 10^3/uL Absolute Nucleated RBC x10^3/uL Nucleated RBC % /100WBC Sodium (135-145) mmol/L Potassium (3.5-5.0) mmol/L Chloride (101-111) mmol/L Carbon Dioxide (21-32) mmol/L Anion Gap (6-13) BUN (6-20) mg/dL Creatinine (0.4-1.0) mg/dL Estimated GFR (MDRD) (>89) Glucose (70-100) mg/dL Lactic Acid (0.5-2.2) mmol/L Calcium (8.5-10.3) mg/dL Total Bilirubin (0.2-1.0) mg/dL AST (10-42) IU/L ALT (10-60) IU/L Alkaline Phosphatase (42-121) IU/L Total Protein (6.7-8.2) g/dL Albumin (3.2-5.5) g/dL Globulin (2.1-4.2) g/dL Albumin/Globulin Ratio (1.0-2.2) Lipase (22-51) U/L TSH 4.77 (0.34-5.60) uIU/mL Urine Color Urine Clarity (CLEAR) Urine pH (5.0-7.5) PH Ur Specific Bryson (1.002-1.030) Urine Protein (NEGATIVE) mg/dL Urine Glucose (UA) (NEGATIVE) mg/dL Urine Ketones (NEGATIVE) mg/dL Urine Occult Blood (NEGATIVE) Urine Nitrite (NEGATIVE) Urine Bilirubin (NEGATIVE) Urine Urobilinogen (NORMAL) E.U./dL Ur Leukocyte Esterase (NEGATIVE) Ur Microscopic Review Urine Culture Comments Urine HCG, Qual CSF Color (COLORLESS) CSF Clarity (CLEAR) Xanthrochromic (ABSENT) CSF WBC (0-5) /mm^3 CSF RBC (0-1) /mm^3 CSF Cell Count Tube # CSF Neutrophils (0-6) % CSF Lymphocytes (40-80) % CSF Monocytes (15-45) % CSF Glucose (45-70) mg/dL CSF Total Protein (15-45) mg/dL Salicylates mg/dL Urine Opiates Screen (NEGATIVE) Ur Oxycodone Screen (NEGATIVE) Urine Methadone Screen (NEGATIVE) Ur Propoxyphene Screen (NEGATIVE) Acetaminophen (10-30) ug/mL Ur Barbiturates Screen (NEGATIVE) Ur Tricyclics Screen (NEGATIVE) Ur Phencyclidine Scrn (NEGATIVE) Ur Amphetamine Screen (NEGATIVE) U Methamphetamines Scrn (NEGATIVE) U Benzodiazepines Scrn (NEGATIVE) Urine Cocaine Screen (NEGATIVE) U Cannabinoids Screen (NEGATIVE) Ethyl Alcohol mg/dL Assessment/Plan - Problem List (1) Altered mental status Impression: resolved once benzo's out of her and no longer post ictal. (2) Seizure Phamarcy educated us with regards to her ampyra. She is on a compounded form and this is associated with seizures. I spoke to her Neurolgist and he describes her use of the medicine as for helping her walk with her MS. But since she doesn't walk, and is in a wheelchair, she is using it for leg spasms. He doesn't feel she needs to be on this. He also doesn't feel she needs the repeat MRI. She was tearful at the cost of a second one. Patient given a loading dose of Keppra 2g IV At the recommendation of neurology, will continue Keppra 750mg IV bid then started and I am switching to po now that patient able to tolerate On seizure precautions Patient will need to follow up with neurology upon discharge. She will need to weight benefit of ampyra vs. risk. He and she will also need to discuss how long she will remain on Keppra (3) Multiple sclerosis Conclusion/Plan: Stop ampyra MRI brain order discontinued to stay overnight and get hydrated with goal to recover strength by am in her arms. (4) Lactic acidosis resolved Conclusion/Plan: Likely 2/2 seizure. Hydrating patient. (5) Leukocytosis from demargination Conclusion/Plan: Likely reactive. Will monitor However patient was given a dose of empiric antibiotics Will not continue at the moment Qualifiers: Qualified Code(s): R41.82 - Altered mental status, unspecified
[2019-04-29] MEDS: levETIRAcetam 250 MG TABLET PO SCH (20:58)
[2019-04-29] MEDS: guaiFENesin 600 MG TABLET PO SCH (20:58)
[2019-04-30] MEDS: IBUPROFEN 600 MG TABLET PO SCH ×3 (00:08→12:22)
[2019-04-30] MEDS: SODIUM CHLORIDE FLUSH 0.9% 10 ML SYRINGE IVP SCH ×3 (00:09→09:31)
[2019-04-30] MEDS: SODIUM CHLORIDE 0.9% 1,000 ML IV SCH ×2 (00:27→09:34)
[2019-04-30 07:38] LABS: BASOPHILS # (AUTO) 0.1 10^3/uL (0.0-0.1); BASOPHILS % (AUTO) 0.7 %; EOSINOPHILS # (AUTO) 0.2 10^3/uL (0.0-0.7); EOSINOPHILS % (AUTO) 1.7 %; HGB - HEMOGLOBIN 12.1 g/dL (12.0-16.0); LYMPHOCYTES # (AUTO) 1.2 10^3/uL (1.5-3.5); LYMPHOCYTES % (AUTO) 13.5 %; MEAN CORPUSCULAR HGB CONC 33.3 g/dL (32.0-36.0); MEAN CORPUSCULAR VOLUME 89.9 fL (81.0-99.0); MEAN PLATELET VOLUME 11.7 fL (7.9-10.8); MONOCYTES # (AUTO) 0.7 10^3/uL (0.0-1.0); MONOCYTES % (AUTO) 7.7 %; NEUTROPHILS # (AUTO) 6.8 10^3/uL (1.5-6.6); NEUTROPHILS % (AUTO) 76.1 %; PLT - PLATELET COUNT 174 10^3/uL (130-450); RED BLOOD COUNT 4.04 10^6/uL (4.20-5.40); RED CELL DISTRIBUTION WIDTH 12.8 % (12.0-15.0)
[2019-04-30 07:42] LABS: CALCIUM 7.9 mg/dL (8.5-10.3); CREATININE 0.6 mg/dL (0.4-1.0)
[2019-04-30] MEDS: levETIRAcetam 250 MG TABLET PO SCH ×2 (08:48→11:08)
[2019-04-30] MEDS: guaiFENesin 600 MG TABLET PO SCH ×2 (08:48→11:08)
[2019-04-30] MEDS ORDERED: PROCHLORPERAZINE 10 MG/2 ML VIAL IVP PRN (09:15)
--- NOTE | 2019-04-30 10:10 | Discharge Plan ---
Discharge Plan Problem Reviewed?: Yes Disposition: 06 Home Health Service Condition: Stable Diet: Regular Activity Restrictions: Activity as Tolerated Shower Restrictions: No Driving Restrictions: Yes (If you were driving, see Neurologist to resume driving.) Assistance Devices: Wheelchair Instruction Topics: Epilepsy Safety During Seizure Health Concerns: Admitted with a seizure due to the compounded medication. The Hospitalist spoke to your neurologist, Dr.Francesco Martin from [facility], and recommendations were followed. Plan of Treatment: Stop using the compounded Ampyra. Start taking Keppra. See your specialist in follow-up. Resume all your other medications. See your PCP and/or neurologist for further questions. You may not drive a vehicle (at least for 6 mos from the last seizure), and to resume driving, that must be ordered by a doctor. Home Health services for Physical Therapy, Occupational Therapy and Bath Aide have been submitted for you. Care Goals: Stabilization. Assessment: The patient was informed and agrees. Follow-Up Care: Home Health - PT, Home Health - OT No Smoking: If you smoke, Please STOP! Call for help. Follow-up with: Shruti Maria PA-C [Primary Care Provider] -
[2019-04-30] MEDS ORDERED: ALBUTEROL NEB 2.5 MG/3 ML INH ONE (10:32)
[2019-04-30 15:50] VITALS: BP 139/62
--- NOTE | 2019-04-30 15:59 | DISCHARGE SUMMARY ---
"Discharge Summary Admit Date: 04/29/19 Discharge Date: 04/30/19 Discharging Provider: Dr Smita Sanchez Primary Care Provider: FILIPPO Jones Code Status: Attempt Resuscitation Condition at Discharge: Stable Discharge Disposition: 06 Home Health Service - DIAGNOSES Admission Diagnoses: (1) Altered mental status (2) Seizure (3) Multiple sclerosis (4) Lactic acidosis (5) Leukocytosis Discharge Diagnoses with Status of Each Condition: See below - HPI History of Present Illness: From the admission H&P of Dr Willis Sullivan: Patient is a 49 y/o female with history of Multiple Sclerosis, wheelchair bound for about 4 years and on Ampyra who presented to the ED with complain of what initially seemed like a panic attack. This happened around 7pm after they had just eaten dinner. At the time she was complaining of stomach, leg and back pain. She also complained of feeling hot and cold. In the ED she had a witnessed tonic-clonic seizure. It is reported that she had one incident of seizure in January of 2019 which was associated with a UTI. On this visit, labs done in the ED showed a WBC of 19.5 and a lactic acid of 8.1. She was afebrile. She had an LP done in the ED which was a traumatic tap but unremarkable for an infectious process. She was given 2mg of versed and 2mg of ativan IV in the ED. As a result she was very sedated during the exam. She follows with Dr.Francesco Martin from [facility]. The covering Neurologist was contacted and advised observation, starting Keppra bid and to get an MRI of the brain. If any significant findings, then to contact them. She had an MRI of the brain done at [facility] in January which was stable. - CONSULTS | PROCEDURES Consultations: Neurology was called - HOSPITAL COURSE Hospital Course: (1) Altered mental status The head CT showed no acute findings but patchy white matter changes, consistent with either MS or microvascular ischemic changes. She was obtunded for a day, which resolved once benzodiazepines were out of her system and she was no longer post ictal. She was seen by PT on the day of [facility] and Home Health was recommended and was ordered for PT, OT and a Home Health Aide. (2) Seizure She was on Ampyra at home, a compounded formulation that is associated with seizures. The Hospitalist spoke to her Neurolgist, Dr. Aubrey Martin from [facility] @ [phone], and he described her use of that medicine as for helping her walk with her MS. But since she doesn't walk, and is in a wheelchair, she is using it for leg spasms. He didn't feel she needed to be on this and also didn't feel she needed the repeat MRI. She was given a loading dose of Keppra 2g IV then switched to 750 mg po bid dosing. She was on seizure precautions while here, and there were no more seizures. Patient will need to follow up with neurology upon discharge. She may no longer drive a vehicle, until cleared by neurology and she and Dr Martin will also need to discuss how long she will remain on Keppra (3) Multiple sclerosis As in #2 (4) Lactic acidosis resolved This was likely secondary to the seizure. She was hydrated with iv fluids, and the level returned to normal. (5) Leukocytosis from demargination This was also likely reactive, however patient was given a dose of empiric antibiotics (Vancomycin x1). (6) N/V On the morning of [facility], she took a dose of Motrin on an empty stomach which caused nausea and vomiting and she needed Compazine iv. She nausea was controlled but she had a poor appetite following that. - ALLERGIES Allergies/Adverse Reactions: Allergies Allergy/AdvReac Type Severity Reaction Status Date / Time No Known Drug Allergies Allergy Verified 04/28/19 20:59 - MEDICATIONS Home Medications: Ambulatory Orders Medication Instructions Recorded Confirmed Albuterol Sulfate [Proair 1 puffs INH PRN PRN 04/28/19 04/28/19 Respiclick] Montelukast Sodium 10 mg PO DAILY 04/29/19 04/29/19 Levetiracetam [Keppra] 750 mg PO BID #60 tablet 04/30/19 - PHYSICAL EXAM AT DISCHARGE General Appearance: positive: No acute distress Eyes Bilateral: positive: Normal inspection ENT: positive: ENT inspection nml Neck: positive: Nml inspection, No JVD Respiratory: positive: No respiratory distress Cardiovascular: positive: Regular rate & rhythm Abdomen: positive: No distention Extremities: positive: No pedal edema Neurologic/Psychiatric: positive: Other (Speech is slow, R arm is very weak, and severe weakness from the waist down) - LABS Result Diagrams: 04/30/19 07:10 04/30/19 07:10 - DIAGNOSTIC IMAGING Diagnostic Imaging Results: Final report reviewed - FOLLOW UP Follow Up: See Neurologist in 7-10 days. See PCP for hospital follow-up in 7-10 days. - TIME SPENT Time Spent in Discharge (Minutes): 30"
[2019-05-01 12:56] LABS: HSV 1 IGG TYPE SPECIFIC AB <0.90 index; HSV 2 IGG TYPE SPECIFIC AB <0.90 index
== END 2019-04-30 16:30 | disposition home health service (06) ==
LOC: ED 20:44 → MS2 04-29 03:23
PROVIDERS: ADMIT Internal Medicine; ATTEND Internal Medicine
DX: R41.82 Altered mental status, unspecified (principal); R56.9 Unspecified convulsions; T50.995A Adverse effect of other drugs, medicaments and biological substances, initial encounter; Y92.009 Unspecified place in unspecified non-institutional (private) residence as the place of occurrence of the external cause; E87.2 Acidosis; G35 Multiple sclerosis; D72.829 Elevated white blood cell count, unspecified; F41.9 Anxiety disorder, unspecified; R11.2 Nausea with vomiting, unspecified; T39.315A Adverse effect of propionic acid derivatives, initial encounter; Y92.230 Patient room in hospital as the place of occurrence of the external cause; Z94.84 Stem cells transplant status; Z99.3 Dependence on wheelchair; Z79.51 Long term (current) use of inhaled steroids; Z72.89 Other problems related to lifestyle
CPT/HCPCS: 36415; 51701; 62270; 70450; 71045; 80048; 80320; 80329; 81003; 81025; 82945; 83605; 83690; 84157; 85025; 86695; 86696; 87040; 87070; 87205; 89051; 96361; 96365; 96366; 96368; 96375; 96376; 97162; 99285; A9270; G0378; J2060; J3370; 80053; 80306; 80307; 81001; 84443; 87086

== ENCOUNTER 2020-08-28 08:00 | Outpatient (CLI) | payer MEDICARE, OTHER ==
[2020-08-28 18:34] LABS: BASOPHILS # (AUTO) 0.1 10^3/uL (0.0-0.1); BASOPHILS % (AUTO) 0.9 %; EOSINOPHILS # (AUTO) 0.1 10^3/uL (0.0-0.7); EOSINOPHILS % (AUTO) 1.6 %; HCT - HEMATOCRIT 44.9 % (37.0-47.0); HGB - HEMOGLOBIN 15.2 g/dL (12.0-16.0); LYMPHOCYTES # (AUTO) 1.8 10^3/uL (1.5-3.5); MEAN CORPUSCULAR HGB CONC 33.9 g/dL (32.0-36.0); MEAN CORPUSCULAR VOLUME 88.7 fL (81.0-99.0); MEAN PLATELET VOLUME 11.8 fL (7.9-10.8); MONOCYTES # (AUTO) 0.7 10^3/uL (0.0-1.0); MONOCYTES % (AUTO) 9.2 %; NEUTROPHILS # (AUTO) 4.7 10^3/uL (1.5-6.6); NEUTROPHILS % (AUTO) 64.2 %; PLT - PLATELET COUNT 222 10^3/uL (130-450); RED BLOOD COUNT 5.06 10^6/uL (4.20-5.40); RED CELL DISTRIBUTION WIDTH 12.9 % (12.0-15.0); WHITE BLOOD COUNT 7.4 x10^3/uL (4.8-10.8)
[2020-08-28 19:18] LABS: ALBUMIN 4.3 g/dL (3.2-5.5); ALBUMIN/GLOBULIN RATIO 1.7 (1.0-2.2); ALKALINE PHOSPHATASE 37 IU/L (42-121); ALT ALANINE AMINOTRANSFERASE 10 IU/L (10-60); AST ASPARTATE AMINOTRANSFERASE 12 IU/L (10-42); BILIRUBIN,TOTAL 1.2 mg/dL (0.2-1.0); BUN - BLOOD UREA NITROGEN 14 mg/dL (6-20); CALCIUM 9.4 mg/dL (8.5-10.3); CARBON DIOXIDE - CO2 23 mmol/L (21-32); CHLORIDE 110 mmol/L (101-111); CHOL/HDL RATIO 2.3 (<4.4); CHOLESTEROL 160 mg/dL; CREATININE 0.5 mg/dL (0.4-1.0); GFR - MDRD 131 (>89); GLUCOSE 79 mg/dL (70-100); HDL CHOLESTEROL 71 mg/dL; LDL CHOLESTEROL,CALCULATED 74 mg/dL; SODIUM 140 mmol/L (135-145); TOTAL PROTEIN 6.8 g/dL (6.7-8.2); TRIGLYCERIDES 75 mg/dL; VLDL CHOLESTEROL 15 mg/dL
[2020-08-28 19:23] LABS: THYROID STIMULATING HORMONE 1.04 uIU/mL (0.34-5.60)
== END 2020-08-28 23:59 | disposition home or self-care (01) ==
LOC: LAB.WCP 08:00
PROVIDERS: ATTEND Physician Assistant Medical
DX: Z00.00 Encounter for general adult medical examination without abnormal findings (principal)
CPT/HCPCS: 36415; 80053; 80061; 83721; 84443; 85025

== ENCOUNTER 2021-09-21 08:00 | Outpatient (CLI) | payer MEDICARE ==
[2021-09-21 11:51] LABS: BASOPHILS # (AUTO) 0.1 10^3/uL (0.0-0.1); BASOPHILS % (AUTO) 0.9 %; EOSINOPHILS # (AUTO) 0.1 10^3/uL (0.0-0.7); EOSINOPHILS % (AUTO) 0.9 %; HCT - HEMATOCRIT 43.2 % (37.0-47.0); HGB - HEMOGLOBIN 14.6 g/dL (12.0-16.0); LYMPHOCYTES # (AUTO) 1.5 10^3/uL (1.5-3.5); LYMPHOCYTES % (AUTO) 18.5 %; MEAN CORPUSCULAR HEMOGLOBIN 29.8 pg (27.0-31.0); MEAN CORPUSCULAR HGB CONC 33.8 g/dL (32.0-36.0); MEAN CORPUSCULAR VOLUME 88.2 fL (81.0-99.0); MONOCYTES # (AUTO) 0.6 10^3/uL (0.0-1.0); MONOCYTES % (AUTO) 6.8 %; NEUTROPHILS # (AUTO) 5.8 10^3/uL (1.5-6.6); NEUTROPHILS % (AUTO) 72.7 %; PLT - PLATELET COUNT 249 10^3/uL (130-450)
[2021-09-21 11:58] LABS: BILIRUBIN,URINE NEGATIVE (NEGATIVE); GLUCOSE, URINE (UA) NEGATIVE (NEGATIVE); KETONES,URINE (UA) NEGATIVE (NEGATIVE); LEUKOCYTE ESTERASE, URINE NEGATIVE (NEGATIVE); NITRITE,URINE POSITIVE (NEGATIVE); OCCULT BLOOD,URINE NEGATIVE (NEGATIVE); PROTEIN,URINE NEGATIVE (NEGATIVE); UROBILINOGEN,URINE 0.2 (NORMAL) E.U./dL (NORMAL)
[2021-09-21 12:04] LABS: CLARITY,URINE HAZY (CLEAR)
[2021-09-21 12:10] LABS: ALBUMIN 4.2 g/dL (3.2-5.5); ALBUMIN/GLOBULIN RATIO 1.6 (1.0-2.2); BILIRUBIN,TOTAL 0.9 mg/dL (0.2-1.0); CALCIUM 9.2 mg/dL (8.5-10.3); CREATININE 0.6 mg/dL (0.4-1.0); TOTAL PROTEIN 6.9 g/dL (6.7-8.2)
[2021-09-21 12:19] LABS: THYROID STIMULATING HORMONE 1.11 uIU/mL (0.34-5.60)
[2021-09-21 12:21] LABS: BACTERIA,URINE Moderate /HPF (None Seen); RBC,URINE 0-5 /HPF (0-5); SQUAMOUS EPITHELIAL CELL,UR FEW Squamous (<= Few); WBC,URINE 0-3 /HPF (0-5)
== END 2021-09-21 23:59 ==
LOC: LAB.N 08:00
PROVIDERS: ATTEND Family Medicine
DX: R60.9 Edema, unspecified (principal); R06.09 Other forms of dyspnea
CPT/HCPCS: 36415; 80053; 81001; 83880; 84443; 85025; 85379; 87077; 87086; 87181

== ENCOUNTER 2021-10-06 18:58 | Outpatient (CLI) | payer MEDICARE ==
--- NOTE | 2021-10-07 07:04 | Ultrasound Report ---
PROCEDURE: Duplex Ext Veins Bilateral INDICATIONS: Bilateral lower extremity edema. TECHNIQUE: Real-time imaging, as well as color and pulse Doppler interrogation, were performed of the deep veins of both legs from the inguinal ligament to the popliteal fossa. COMPARISON: None FINDINGS: The deep veins of the right and left lower extremities are normally compressible, and free of intraluminal thrombus. Color and pulse Doppler demonstrate normal phasic intravascular flow in t he deep veins of the right left lower extremity. There is normal augmentation response to distal com pression maneuver. IMPRESSION: No evidence of deep vein thrombosis involving the right or left lower extremities. Reviewed by: Florencia Minaya MD, PhD on 10/07/2021 7:03 AM PDT Approved by: Florencia Minaya MD, PhD on 10/07/2021 7:03 AM PDT Station ID: [id number]
== END 2021-10-06 18:59 | disposition home or self-care (01) ==
LOC: DI 18:58
PROVIDERS: ATTEND Family Medicine
DX: R60.9 Edema, unspecified (principal); R06.09 Other forms of dyspnea; G35 Multiple sclerosis
CPT/HCPCS: 93970

== ENCOUNTER 2023-10-05 20:13 | Emergency (ER) | payer MEDICARE ==
[2023-10-05 20:33] VITALS: BP 135/50; O2SAT 98
--- NOTE | 2023-10-05 21:02 | ED Physician Documentation ---
PD HPI HEENT - Stated complaint Stated Complaint: BILAT EAR PX - Chief complaint Chief Complaint: Heent - History obtained from History obtained from: Patient - Additional information Additional information: She has a cerumen impaction. It has really been bothering her especially on the right for the last 2 days. She went to the clinic and was referred to ENT but there will be a delay so she presented here. PD PAST MEDICAL HISTORY - Past Medical History Past Medical History: Yes Respiratory: None Neuro: Multiple sclerosis Endocrine/Autoimmune: None Psych: Anxiety Derm: None - Past Surgical History Past Surgical History: No - Present Medications Home Medications: Ambulatory Orders Medication Instructions Recorded Confirmed Albuterol Sulfate [Proair 1 puffs INH PRN PRN 04/28/19 04/28/19 Respiclick] Montelukast Sodium 10 mg PO DAILY 04/29/19 04/29/19 Levetiracetam [Keppra] 750 mg PO BID #60 tablet 04/30/19 - Allergies Allergies/Adverse Reactions: Allergies Allergy/AdvReac Type Severity Reaction Status Date / Time No Known Drug Allergies Allergy Verified 10/05/23 20:21 - Social History Does the pt smoke?: No Smoking Status: Never smoker Does the pt drink ETOH?: No Does the pt have substance abuse?: No - Immunizations Immunizations are current?: No Immunizations: TDAP >10years/unknown PD ED PE NORMAL - Vitals Vital signs reviewed: Yes - General General: Alert and oriented X 3, No acute distress - HEENT HEENT: Other (A lot of cerumen on the left and completely impacted on the right.) Results - Vitals Vitals: Vital Signs - 24 hr 10/05/23 20:21 Temperature 36.7 C Heart Rate 85 Respiratory 16 Rate Blood Pressure 135/50 H O2 Saturation 98 Oxygen O2 Source Room air PD Medical Decision Making - ED course ED course: Using syringe irrigation we were able to clear the ears of cerumen.'s large chunks were removed Departure - Departure Disposition: 01 Home, Self Care Clinical Impression: Cerumen impaction Qualifiers: Laterality: bilateral Qualified Code(s): H61.23 - Impacted cerumen, bilateral Condition: Stable Record reviewed to determine appropriate education?: Yes Instructions: Earwax Impacted Forms: PCP List
== END 2023-10-05 21:15 | disposition home or self-care (01) ==
LOC: ED 20:13
DX: H61.23 Impacted cerumen, bilateral (principal)
CPT/HCPCS: 99281

== ENCOUNTER 2023-10-12 10:34 | Outpatient (CLI) | payer MEDICARE ==
[2023-10-12 12:08] LABS: BASOPHILS # (AUTO) 0.1 10^3/uL (0.0-0.1); BASOPHILS % (AUTO) 0.6 %; EOSINOPHILS # (AUTO) 0.3 10^3/uL (0.0-0.7); EOSINOPHILS % (AUTO) 2.9 %; HCT - HEMATOCRIT 42.9 % (37.0-47.0); HGB - HEMOGLOBIN 13.8 g/dL (12.0-16.0); LYMPHOCYTES # (AUTO) 1.5 10^3/uL (1.5-3.5); LYMPHOCYTES % (AUTO) 15.7 %; MEAN CORPUSCULAR HEMOGLOBIN 28.4 pg (27.0-31.0); MEAN CORPUSCULAR HGB CONC 32.2 g/dL (32.0-36.0); MEAN CORPUSCULAR VOLUME 88.3 fL (81.0-99.0); MEAN PLATELET VOLUME 11.5 fL (7.9-10.8); MONOCYTES # (AUTO) 0.7 10^3/uL (0.0-1.0); MONOCYTES % (AUTO) 7.1 %; NEUTROPHILS % (AUTO) 73.5 %; PLT - PLATELET COUNT 219 10^3/uL (130-450); RED BLOOD COUNT 4.86 10^6/uL (4.20-5.40); RED CELL DISTRIBUTION WIDTH 13.7 % (12.0-15.0); WHITE BLOOD COUNT 9.5 x10^3/uL (4.8-10.8)
[2023-10-12 12:41] LABS: THYROID STIMULATING HORMONE 1.13 uIU/mL (0.34-5.60)
[2023-10-12 12:49] LABS: ALBUMIN/GLOBULIN RATIO 1.6 (1.0-2.2); ALKALINE PHOSPHATASE 39 IU/L (42-121); ALT ALANINE AMINOTRANSFERASE 8 IU/L (10-60); AST ASPARTATE AMINOTRANSFERASE 10 IU/L (10-42); BILIRUBIN,TOTAL 1.1 mg/dL (0.2-1.0); BUN - BLOOD UREA NITROGEN 10 mg/dL (6-20); CALCIUM 9.5 mg/dL (8.5-10.3); CARBON DIOXIDE - CO2 28 mmol/L (21-32); CHLORIDE 105 mmol/L (101-111); CHOLESTEROL 177 mg/dL; CREATININE 0.6 mg/dL (0.6-1.3); GFR - MDRD 105 (>89); GLUCOSE 99 mg/dL (74-104); HDL CHOLESTEROL 88 mg/dL; LDL CHOLESTEROL,CALCULATED 71 mg/dL; LDL/HDL RATIO 0.8 (<4.4); POTASSIUM 3.8 mmol/L (3.5-4.5); SODIUM 138 mmol/L (135-145); TOTAL PROTEIN 6.5 g/dL (6.4-8.9); TRIGLYCERIDES 89 mg/dL (48-352); VLDL CHOLESTEROL 18 mg/dL
== END 2023-10-12 10:35 | disposition home or self-care (01) ==
LOC: LAB.N 10:34
PROVIDERS: ATTEND Physician Assistant Medical
DX: Z00.00 Encounter for general adult medical examination without abnormal findings (principal); Z79.899 Other long term (current) drug therapy
CPT/HCPCS: 36415; 80053; 80061; 83721; 84443; 85025